=== PATIENT | female | born 1980 | race Caucasian/White ===

== ENCOUNTER 2020-11-05 07:50 | Inpatient (IN) ==
[2020-11-05] MEDS ORDERED: *HR* Nalbuphine 10 MG/ML AMPUL IV PRN (08:23)
[2020-11-05] MEDS ORDERED: Famotidine 20 MG/2 ML VIAL IVP PRN (08:23)
[2020-11-05] MEDS ORDERED: Naloxone 0.4 MG/ML INJ IVP PRN (08:23)
[2020-11-05] MEDS ORDERED: Metoclopramide 10 MG/2 ML VIAL IVP PRN (08:23)
[2020-11-05] MEDS ORDERED: Ondansetron 4 MG/2 ML VIAL IVP PRN (08:23)
[2020-11-05] MEDS ORDERED: D5% in 0.45% NACL 1,000 ML IVC SCH (08:30)
[2020-11-05] MEDS ORDERED: Oxytocin 20 units/ LR 1000 mL 20 UNIT/1,000 ML BAG IVC SCH ×2 (08:30→23:38)
[2020-11-05] MEDS ORDERED: Ringers Solution, Lactated 1,000 ML IVC SCH (08:30)
[2020-11-05 09:59] LABS: Basophils # 0.1 K/mcL (0.0-0.2); Basophils % 0.8 %; Eosinophils # 0.1 K/mcL (0.0-0.6); Eosinophils % 0.6 %; Hematocrit 39.9 % (35.3-44.9); Lymphocytes # 1.8 K/mcL (0.6-4.6); Lymphocytes % 12.6 %; Mean Corpuscular HGB Conc 32.6 g/dL (31.6-35.5); Mean Corpuscular Hemoglobin 30.4 pg (28.0-33.3); Mean Corpuscular Volume 93.4 fL (83.0-100.0); Neutrophils # 10.7 K/mcL (1.6-8.9); Nucleated Red Blood Cells 0.1 /100 WBC (0); Platelet Count 310 K/mcL (140-400); Red Blood Count 4.27 M/mcL (3.82-4.97); Red Cell Distribution Width 13.3 % (11.5-14.5); White Blood Count 13.9 K/mcL (4.3-11.1)
[2020-11-05 10:55] LABS: Adenovirus Not Detected (Not Detect); Bordetella Pertussis Not Detected (Not Detect); Chlamydophila pneumoniae Not Detected (Not Detect); Coronavirus 229E Not Detected (Not Detect); Coronavirus HKU1 Not Detected (Not Detect); Coronavirus NL63 Not Detected (Not Detect); Coronavirus OC43 Not Detected (Not Detect); Human Metapneumovirus Not Detected (Not Detect); Human Rhinovirus/Enterovirus Not Detected (Not Detect); Influenza A Subtype 2009 H1 Not Detected (Not Detect); Influenza B Not Detected (Not Detect); Mycoplasma pneumoniae Not Detected (Not Detect); Parainfluenza Virus 1 Not Detected (Not Detect); Parainfluenza Virus 2 Not Detected (Not Detect); Parainfluenza Virus 3 Not Detected (Not Detect); Parainfluenza Virus 4 Not Detected (Not Detect); Respiratory Syncytial Virus Not Detected (Not Detect); SARS-CoV-2 Not Detected (Not Detect)
[2020-11-05 11:54] LABS: Amphetamine Screen,Urine Negative ng/mL (Cutoff=1000); Barbiturate Screen,Urine Negative ng/mL (Cutoff=200); Benzodiazepines Screen,Urine Negative ng/mL (Cutoff=200); Cannabinoid Screen,Urine Negative ng/mL (Cutoff = 50); Cocaine Screen,Urine Negative ng/mL (Cutoff= 300); Opiate Screen,Urine Negative ng/mL (Cutoff=300); Phencyclidine Screen,Urine Negative ng/mL (Cutoff=25)
[2020-11-05] MEDS ORDERED: *HR* HYDROmorphone (PF) 1 MG/ML SYRINGE ONE (22:04)
[2020-11-05] MEDS ORDERED: Lidocaine 1% 20 ML MDV ONE (22:06)
[2020-11-05] MEDS ORDERED: Acetaminophen 325 MG TABLET PO PRN (23:38)
[2020-11-05] MEDS ORDERED: Measles/Mumps/Rubella Vacc 0.5 ML VIAL SQ PRN (23:38)
[2020-11-05] MEDS ORDERED: Benzocaine/Menthol 56 GM AEROSOL SPRAY TP PRN (23:38)
[2020-11-05] MEDS ORDERED: Sennosides 8.6 MG TABLET PO PRN (23:38)
[2020-11-05] MEDS ORDERED: Lanolin 7 G OINT...G. TP PRN (23:38)
[2020-11-06] MEDS: *HR* HYDROcodone/Acet 5/325 mg TABLET PO PRN (00:35)
[2020-11-06] MEDS: Ibuprofen 600 MG TABLET PO PRN ×3 (00:36→20:49)
[2020-11-06 04:42] LABS: Basophils # 0.1 K/mcL (0.0-0.2); Basophils % 0.3 %; Eosinophils % 0.1 %; Hematocrit 35.6 % (35.3-44.9); Hemoglobin 11.8 g/dL (11.5-15.4); Lymphocytes # 1.1 K/mcL (0.6-4.6); Lymphocytes % 6.1 %; Mean Corpuscular HGB Conc 33.1 g/dL (31.6-35.5); Mean Corpuscular Hemoglobin 31.1 pg (28.0-33.3); Mean Corpuscular Volume 93.7 fL (83.0-100.0); Mean Platelet Volume 10.8 fL (9.4-12.4); Monocytes # 1.7 K/mcL (0.0-1.3); Neutrophils # 15.5 K/mcL (1.6-8.9); Platelet Count 248 K/mcL (140-400); Red Cell Distribution Width 13.4 % (11.5-14.5); Segmented Neutrophils % 83.5 %; White Blood Count 18.5 K/mcL (4.3-11.1)
[2020-11-06] MEDS: Fluconazole 150 MG TABLET PO SCH (09:32)
[2020-11-06] MEDS: Prenatal Vit/FA 1 EACH TABLET PO SCH (09:32)
[2020-11-06] MEDS: Amoxicillin 500 MG CAPSULE PO SCH ×2 (09:32→19:47)
[2020-11-06] MEDS: Doxycycline 100 MG CAPSULE PO SCH ×2 (09:32→20:48)
[2020-11-07] MEDS: Amoxicillin 500 MG CAPSULE PO SCH ×2 (00:22→08:10)
[2020-11-07] MEDS: *HR* HYDROcodone/Acet 5/325 mg TABLET PO PRN ×2 (02:45→08:09)
[2020-11-07 07:33] VITALS: BP 112/74
[2020-11-07] MEDS: Fluconazole 150 MG TABLET PO SCH (08:09)
[2020-11-07] MEDS: Doxycycline 100 MG CAPSULE PO SCH (08:09)
[2020-11-07] MEDS: Prenatal Vit/FA 1 EACH TABLET PO SCH (08:10)
== END 2020-11-07 11:00 | disposition home or self-care (01) | DRG 560 ==
LOC: 1NENULAB 07:50 → 1NENUOBS 11-06 00:44
PROVIDERS: ADMIT Student in an Organized Health Care Education/Training Program; ATTEND Student in an Organized Health Care Education/Training Program